=== PATIENT | male | born 1940 | race Hispanic/Latino ===

== ENCOUNTER 2021-06-06 22:19 | Observation (INO) | payer OTHER, SELFPAY ==
[2021-06-06 22:20] VITALS: BP 159/115; PULSE 116; RESP 16; TEMP 36.8; O2SAT 97; BMI 28.5
--- NOTE | 2021-06-06 23:20 | CT_ITS ---
STUDY: CT BRAIN WITHOUT CONTRAST REASON FOR EXAM: Male, 80 years old. dizziness RADIATION DOSAGE (If Supplied By Facility): CTDIvol = ( 44.99 ) mGy, DLP = ( 812.98 ) mGycm TECHNIQUE: Transaxial CT imaging of the brain was performed without administration of intravenous contrast material. Individualized dose optimization techniques were used for this CT. COMPARISON: No relevant priors. FINDINGS: Normal soft tissue structures. Normal calvarium. There is a 5 x 3.5 x 3.5 mm hyperdense structure in the anterior superior corner of the third ventricle, probably representing a choroid cyst. There is no associated ventricular obstruction and this finding is of normal medial clinical significance. There is mild cerebral atrophy with widening of the extra-axial spaces and ventricular dilatation. 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 There is no associated mass effect or ventricular obstruction and this finding is of doubtful clinical significance. Normal white matter tracts of the cerebral hemispheres. Normal basal ganglia and thalami. Normal brainstem. Normal cerebellum. There is atherosclerotic calcification of the cavernous carotid arteries. There is no intracranial hemorrhage. There are no findings of an acute ischemic infarction. There is mild mucoperiosteal thickening in the right and sinus consistent with chronic disease. No evidence for acute sinusitis. CT/Brain/Head without Contrast IMPRESSION: Chronic involutional changes of the brain. 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 Suggest 6 month follow-up exam to assess stability. No demonstrated acute intracranial process. Electronically Signed: Steven Rizo MD at 0:14 EDT , Service support ,
--- NOTE | 2021-06-06 23:21 | EKG12_ITS ---
Test Reason : DIZZY Blood Pressure : / mmHG Vent. Rate : 096 BPM Atrial Rate : 101 BPM P-R Int : 000 ms QRS Dur : 106 ms QT Int : 360 ms P-R-T Axes : 000 -04 029 degrees QTc Int : 454 ms Atrial fibrillation Incomplete right bundle branch block Abnormal ECG Confirmed by GUSTAVO LOPEZ, BUZZ ([id number]), photo editor DEENA ELMORE ([id number]) on 06/08/2021 10:09:16 AM Referred By: TRISTA Confirmed By:BUZZ CHEN MD
--- NOTE | 2021-06-06 23:22 | EDS_ITS ---
HPI History of Present Illness Chief Complaint: Dizziness Informant: patient and family Narrative Narrative: Of note, patient does speak Telugu but his Italian is actually pretty good. He is pretty good at telling me details. His family also helps. They are comfortable with this interpretation and he independently gives a good history. Patient had an episode of the dizziness/vertigo today. It is better but still occurs if he gets motion or moving. He does get a true spinning sensation. He has had this in the past. He most recently had about 1 month ago. He was evidently evaluated in [facility] for this but I do not know the details of what was done. They thought it was due to nerves. He does have a long history of being on fluoxetine. He did not have enough for his stay here. So he has cut his dose in half over the last 2 or so weeks. They think this might be related. Patient did not have any focal weakness. He did not fall. He does have a true sense of spinning. When he had the episode last a month ago he had nausea with it but he did not get nauseated this time. Although better he is not completely back to baseline with motion. [facility] Medical History (Updated 06/07/21 @ 02:[address] Slim Mccormick MD) Hypertension Home Medications valsartan-hydrochlorothiazide [Diovan HCT] 1 tab PO DAILY 06/06/21 [History Last Taken Unknown] Allergy/AdvReac Type Severity Reaction Status Date / Time aspirin AdvReac Bleeding Verified 06/06/21 22:23 Surgical History (Updated 06/07/21 @ 01:55 by Peggy Smith NP-C) H/O prostate biopsy Social History (Updated 06/07/21 @ 01:55 by Peggy Smith [employer]-C) Smoking Status: Never smoker alcohol intake: current alcohol intake frequency: holidays/special occasions only Alcohol type: beer substance use type: does not use ROS ROS ED Constitutional Constitutional ED: Denies chills, fever(s) or sweats Eyes Eyes: Denies blurry vision, change in vision or diplopia ENT ENT ED: Denies rhinorrhea Cardiovascular Cardiovascular: Denies chest pain, palpitations or racing heartbeat Respiratory/Chest Respiratory/Chest: Denies cough or dyspnea Gastrointestinal Gastrointestinal: Denies nausea or vomiting Genitourinary Genitourinary ED: Denies dysuria Musculoskeletal Musculoskeletal: Denies back pain or neck pain Integumentary Denies rash Neurologic Neurologic: Reports other Details: See history of present illness. ; Denies headache(s), paresthesias or weakness Psychiatric Psychiatric: Reports anxiety Endocrine Endocrinology: Denies polydipsia or polyuria Allergic/Immunologic Allergic/Immunologic ED: Denies urticaria EXAM Physical Exam Const Vital Signs: 06/06/21 22:20 06/06/21 22:46 06/07/21 00:01 Temperature 98.2 F Temperature Source Temporal Pulse Rate 116 H 85 Respiratory Rate 16 19 H Respiratory Effort Normal Non-Labored Respiratory Pattern Normal Blood Pressure 159/115 H 142/100 H Blood Pressure Mean 129 114 Pulse Ox 97 97 Oxygen Delivery Method Room Air Room Air 06/07/21 01:16 Temperature 98.1 F Temperature Source Temporal Pulse Rate 89 Respiratory Rate 15 Respiratory Effort Respiratory Pattern Blood Pressure 146/108 H Blood Pressure Mean 120 Pulse Ox 97 Oxygen Delivery Method Room Air Positive well nourished and well developed General Appearance ED: well developed and NAD HEENT Reports moist mucous membranes Eyes PERRL and EOMs intact bilaterally Eyes Narrative: Range of motion is intact. Visual faye are intact. When I sit him up, he does get a bit of vertigo and does get some mild horizontal nystagmus that lasts for about 4 or 5 seconds. Neck no lymphadenopathy and supple Neck Narrative: No carotid bruit. Chest Wall inspection of chest normal Resp normal respiratory effort and clear to auscultation bilaterally Cardio regular rate and regular rhythm GI normal to inspection, nondistended, normoactive bowel sounds and non-tender Palpation: soft Back/Spine no CVA tenderness Extremity General Extremety ED: Negative for edema or tenderness General Extremity: Negative for edema Neuro oriented x3 Neuro Narrative: NIH is 0. Sensorium / Orientation: alert Psych mental status grossly normal Skin no rashes or lesions noted MDM MDM MDM Narrative Medical decision making narrative: CT showed chronic but no acute changes. CBC is unremarkable. Electrolytes show minimal elevation in creatinine. Patient was given a small amount of fluids. The concern is that this patient does appear to be in new onset atrial fibrillation. His initial EKG was suspicious for this. I have looked at them on the monitor and he does appear to be in atrial fibrillation. His rate is controlled though. I am awaiting a repeat EKG. However, with his intermittent episodes of dizziness and new onset atrial fibrillation this puts him at much higher risk for potential stroke as the origin of his symptoms. Case was discussed with the hospitalist and the patient will be admitted. Lab Data Attestation: I reviewed the patient's lab results. Labs: Laboratory Results - last 24 hr 06/06/21 06/06/21 06/06/21 22:40 22:40 22:40 WBC 8.7 RBC 4.95 Hgb 16.0 Hct 47.0 MCV 94.9 H MCH 32.3 H MCHC 34.0 RDW Std Deviation 45.0 H RDW Coeff of Elsy 13.0 Plt Count 129 L MPV 12.7 H Immature Gran % (Auto) 0.800 Neut % (Auto) 60.0 Lymph % (Auto) 28.3 [place] % (Auto) 6.7 Eos % (Auto) 3.7 Baso % (Auto) 0.5 Absolute Neuts (auto) 5.2 Absolute Lymphs (auto) 2.45 Nucleated RBC % 0 Sodium 137 Potassium 3.7 Chloride 107 Carbon Dioxide 24.0 Anion Gap 6 BUN 24 H Creatinine 1.39 H Estim Creat Clear Calc 47.30 Est GFR (MDRD) Af Amer 63 Est GFR (MDRD) Non-Af 52 L BUN/Creatinine Ratio 17.3 Glucose 149 H Calcium 8.8 Magnesium 2.1 Radiography Diagnostic Testing: Radiology Impression Brain CT 06/06/21 23:20 IMPRESSION: Chronic involutional changes of the brain. 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 Suggest 6 month follow-up exam to assess stability. No demonstrated acute intracranial process. Electronically Signed: Steven Rizo MD at 0:14 EDT , Service support , EKG Initial EKG: Comments: EKG done as part of work-up for dizziness and mild irregular heartbeat. EKG shows atrial fibrillation but rate controlled. No ventricular ectopy. QRS and QTc are normal. No old for comparison. Discharge Plan Dx/Rx/DC Orders Clinical Impression: Dizziness, New onset atrial fibrillation Disposition Disposition: Acute Care Hospital [facility] Discharge Date/Time: 06/07/21 02:07
[2021-06-06] MEDS: Meclizine HCl 25 MG Tablet PO (23:28)
[2021-06-06 23:30] LABS: Absolute Lymphocyte Count 2.45 X10^3/uL (0.83-4.51); Absolute Neutrophil Count 5.2 X10^3/uL (2.0-7.7); Basophil# 0.04 X10^3/uL; Basophil% 0.5 % (0-1); Eosinophil# 0.32 X10^3/uL; Eosinophils% 3.7 % (0-5); Lymphocyte # 2.45 X10^3/ul (0.83-4.51); Lymphocyte % 28.3 % (19-41); Mean Corpuscular Hgb 32.3 pg (27.0-32.0); Mean Corpuscular Volume 94.9 fL (80-94); Mean Platelet Vol. 12.7 fl (6.2-12.0); Monocyte# 0.58 X10^3/uL; Monocyte% 6.7 % (0-10); NRBC Flagged by Analyzer 0 % (0-5); Neutrophil # 5.19 X10^3/uL (2.7-7.7); Platelet Count 129 K/mm3 (150-450); Red Blood Count 4.95 M/mm3 (4.6-6.2); White Blood Count 8.7 K/mm3 (4.4-11.0)
[2021-06-06 23:39] LABS: Anion Gap 6 (5-15); BUN 24 mg/dL (7-18); BUN/Creat Ratio 17.3 RATIO (10-20); Calcium,Total 8.8 mg/dL (8.5-10.1); Chloride 107 mmol/L (98-107); Creatinine, Serum 1.39 mg/dL (0.70-1.30); EST Glomerular Filtration Rate 52 mL/min (>60); Est Glom Filt Rate - Afr Amer 63 mL/min (>60); Glucose 149 mg/dL (74-106); Potassium 3.7 mmol/L (3.5-5.1); Sodium Level 137 mmol/L (136-145)
[2021-06-07] VITALS (12 sets, daily range): BP systolic 122–165; BP diastolic 75–116; PULSE 71–98; RESP 15–19; TEMP 36.3–36.7; O2SAT 96–98
--- NOTE | 2021-06-07 01:50 | PCM.HP.STD ---
Documented by User: RISHABH Choe 06/07/21 02:04 HPI - General General Date of Admission: 06/07/21 Date of Service: 06/07/21 Chief Complaint: Near syncope HPI Narrative MIGUEL ANGEL CARMONA, is a 80 M who presents with complaints of vertigo. Patient states that he has experienced this before approximately 1 month prior. Patient is American-speaking but does speak Andorran. Family at bedside is also able to help translate and they are comfortable with this. Patient states that when he was evaluated in [place] he was told that this was due to his nerves. Patient denies fever, chills, shortness of breath, chest pain, cough, nausea, vomiting. [facility] Medical History (Updated 06/07/21 @ 01:58 by RISHABH Choe) Hypertension Home Medications valsartan-hydrochlorothiazide [Diovan HCT] 1 tab PO DAILY 06/06/21 [History Last Taken Unknown] Allergy/AdvReac Type Severity Reaction Status Date / Time aspirin AdvReac Bleeding Verified 06/06/21 22:23 Surgical History (Updated 06/07/21 @ 01:55 by RISHABH Choe) H/O prostate biopsy Social History (Updated 06/07/21 @ 01:55 by RISHABH Choe) Smoking Status: Never smoker alcohol intake: current alcohol intake frequency: holidays/special occasions only Alcohol type: beer substance use type: does not use ROS Constitutional Constitutional: Denies anorexia, chills, fatigue, fever(s), malaise or weakness Cardiovascular Cardiovascular: Reports palpitations; Denies chest pain, edema or syncope Respiratory/Chest Respiratory/Chest: Denies cough, shortness of breath at rest or shortness of breath with exertion Gastrointestinal Gastrointestinal: Denies abdominal pain, constipation, diarrhea, nausea or vomiting Genitourinary Genitourinary: Denies dysuria Musculoskeletal Musculoskeletal: Denies back pain, extremity pain, joint pain, joint stiffness or joint swelling Integumentary Integumentary: Denies dry skin Neurologic Neurologic: Denies abnormal gait, abnormal speech, confusion, dizziness or focal weakness Psychiatric Psychiatric: Denies anxiety or depression Endocrine Endocrinology: Denies change in body appearance Hematologic/Lymphatic Hematologic/Lymphatic: Denies easy bleeding or easy bruising Vital Signs Vital Signs Vital Signs: 06/06/21 22:20 06/06/21 22:46 06/07/21 00:01 Temperature 98.2 F Temperature Source Temporal Pulse Rate 116 H 85 Respiratory Rate 16 19 H Respiratory Effort Normal Non-Labored Respiratory Pattern Normal Blood Pressure 159/115 H 142/100 H Blood Pressure Mean 129 114 Pulse Ox 97 97 Oxygen Delivery Method Room Air Room Air 06/07/21 01:16 Temperature 98.1 F Temperature Source Temporal Pulse Rate 89 Respiratory Rate 15 Respiratory Effort Respiratory Pattern Blood Pressure 146/108 H Blood Pressure Mean 120 Pulse Ox 97 Oxygen Delivery Method Room Air Weight Weight: 210 lb Body Mass Index (BMI) 28.5 Physical Exam Const alert, oriented x3 and no apparent distress General Appearance: cooperative HEENT normocephalic and head/scalp atraumatic Eyes conjunctivae normal and no scleral icterus Neck supple and no JVD General: trachea midline Resp normal respiratory effort, normal air movement and clear to auscultation bilaterally Cardio regular rate, S1 normal heart sound, S2 normal heart sound and peripheral pulses 2+ throughout Rhythm: abnormal rhythm irregularly irregular GI normal to inspection, nondistended, normoactive bowel sounds, soft to palpation and non-tender Extremity normal capillary refill and no clubbing, cyanosis or edema General Extremity: no tenderness to palpation of joints or extremities Skin General Skin Exam: no breakdown and turgor normal Lesions: no lesions Rashes: no rashes Neuro no focal motor deficits and no sensory deficits noted Speech: speech normal Motor Exam: Negative for general weakness Psych thought process normal, cooperative and affect normal Appearance: appropriate Results Lab / Micro Data Result Diagrams: 06/06/21 22:40 06/06/21 22:40 Labs: Laboratory Results - last 24 hr 06/06/21 22:40: WBC 8.7, RBC 4.95, Hgb 16.0, Hct 47.0, MCV 94.9 H, MCH 32.3 H, MCHC 34.0, RDW Std Deviation 45.0 H, RDW Coeff of Elsy 13.0, Plt Count 129 L, MPV 12.7 H, Immature Gran % (Auto) 0.800, Neut % (Auto) 60.0, Lymph % (Auto) 28.3, Parker % (Auto) 6.7, Eos % (Auto) 3.7, Baso % (Auto) 0.5, Absolute Neuts (auto) 5.2, Absolute Lymphs (auto) 2.45, Nucleated RBC % 0 06/06/21 22:40: Sodium 137, Potassium 3.7, Chloride 107, Carbon Dioxide 24.0, Anion Gap 6, BUN 24 H, Creatinine 1.39 H, Estim Creat Clear Calc 47.30, Est GFR (MDRD) Af Amer 63, Est GFR (MDRD) Non-Af 52 L, BUN/Creatinine Ratio 17.3, Glucose 149 H, Calcium 8.8 Assessment & Plan Assessment/Plan (1) Near syncope: (2) New onset atrial fibrillation: PLAN: 1. New onset atrial fibrillation with near syncope -Admit to PCU for cardiac monitoring -Patient is rate controlled at this time. -Will start therapeutic Lovenox -Trend cardiac enzymes -Consult case management for DOAC evaluation for discharge -Encourage incentive spirometry -Oxygen per protocol -PT and OT to eval and treat -Echo ordered for a.m. -CBC, BMP, TSH ordered for a.m. Mag level stat. 2. Hypertension -Continue valsartan and hydrochlorothiazide. DVT prophylaxis-SCDs. This patient was seen by RISHABH Choe under the supervision of Dr. Alcocre. Documented by User: Dr. Eileen Alcocer MD 06/07/21 02:22 HPI - General General Date of Admission: 06/07/21 [facility] Medical History (Updated 06/07/21 @ 01:58 by RISHABH Choe) Hypertension Home Medications valsartan-hydrochlorothiazide [Diovan HCT] 1 tab PO DAILY 06/06/21 [History Last Taken Unknown] Allergy/AdvReac Type Severity Reaction Status Date / Time aspirin AdvReac Bleeding Verified 06/06/21 22:23 Surgical History (Updated 06/07/21 @ 01:55 by RISHABH Choe) H/O prostate biopsy Social History (Updated 06/07/21 @ 01:55 by RISHABH Choe) Smoking Status: Never smoker alcohol intake: current alcohol intake frequency: holidays/special occasions only Alcohol type: beer substance use type: does not use Results Lab / Micro Data Result Diagrams: 06/06/21 22:40 06/06/21 22:40
[2021-06-07 02:06] LABS: Magnesium 2.1 mg/dL (1.6-2.6)
--- NOTE | 2021-06-07 02:13 | PCS.PANDOC ---
PANDEMIC DOCUMENTATION INITIATED: Date: 06/07/2021 Time: 211
[2021-06-07] MEDS: 0.9% Normal Saline 1,000 ML 75 ML IV (02:40)
[2021-06-07 03:07] LABS: Troponin-I HS 5 pg/mL (3.0-78.0)
[2021-06-07 05:27] LABS: Absolute Lymphocyte Count 2.42 X10^3/uL (0.83-4.51); Absolute Neutrophil Count 5.1 X10^3/uL (2.0-7.7); Basophil# 0.07 X10^3/uL; Basophil% 0.8 % (0-1); Eosinophil# 0.23 X10^3/uL; Eosinophils% 2.6 % (0-5); Hematocrit 46.1 % (40-54); Hemoglobin 15.5 g/dL (13.0-16.5); Lymphocyte # 2.42 X10^3/ul (0.83-4.51); Lymphocyte % 27.8 % (19-41); Mean Corp Hgb Conc 33.6 g/dL (32-36); Mean Corpuscular Hgb 32.2 pg (27.0-32.0); Mean Corpuscular Volume 95.6 fL (80-94); Mean Platelet Vol. 12.2 fl (6.2-12.0); Monocyte# 0.75 X10^3/uL; Monocyte% 8.6 % (0-10); NRBC Flagged by Analyzer 0 % (0-5); Neutrophil # 5.14 X10^3/uL (2.7-7.7); Neutrophil % 59.2 % (47-70); Platelet Count 119 K/mm3 (150-450); RBC Distribution Width SD 45.8 fl (35.1-43.9); Red Blood Count 4.82 M/mm3 (4.6-6.2); White Blood Count 8.7 K/mm3 (4.4-11.0)
--- NOTE | 2021-06-07 05:55 | ECHOD_ITS ---
Reason For Study: AFIB/FLUTTER Procedure This was a 2D Doppler, Color Flow transthoracic echocardiogram. Exam performed portable in patient room. Left Ventricle Normal LV size. Left ventricular systolic function is normal. The estimated ejection fraction is 65 %. No regional wall motion abnormalities noted. Right Ventricle Normal RV size. Normal systolic function. Atria The left atrium is mildly enlarged. Normal right atrium. Mitral Valve Normal mitral valve. Tricuspid Valve Normal tricuspid valve. Aortic Valve Trisinus/trileaflet aortic valve. Pulmonic Valve Normal pulmonic valve. Great Vessels Normal aortic root. The pulmonary artery is normal size. Normal inferior vena cava. Pericardium/Pleural No pericardial effusion. MMode/2D Measurements & Calculations LVIDd: 5.1 cm IVSd: 1.0 cm Ao root diam: 3.1 cm LVIDs: 3.5 cm LVPWd: 1.0 cm RVDd: 3.0 cm FS: 30.7 % LAV(MOD-bp): 68.2 ml LA A4 area: 24.7 cm2 LA dimension(2D): 4.1 cm LAV(MOD-bp) Indexed: 31.4 ml/m2 LAV(MOD-sp2): 58.6 ml LAV(MOD-sp4): 82.2 ml RA A4 area: 15.0 cm2 Doppler Measurements & Calculations MV E max todd: 83.8 cm/sec Ao V2 max: 94.3 cm/sec LV V1 max: 65.3 cm/sec Ao max P.6 mmHg LV V1 max P.7 mmHg PA V2 max: 69.7 cm/sec TR max todd: 230.2 cm/sec TR max P.2 mmHg ECHO/Echo Complete Interpretation Summary Normal LV size. Left ventricular systolic function is normal. The estimated ejection fraction is 65 %. The left atrium is mildly enlarged. Ordering Physician: Peggy Smith Referring Physician: SID PCP Performed By: Zayda Alvarado, JEN, RVT
[2021-06-07 06:01] LABS: Anion Gap 6 (5-15); BUN 22 mg/dL (7-18); BUN/Creat Ratio 19.1 RATIO (10-20); Calcium,Total 8.7 mg/dL (8.5-10.1); Chloride 108 mmol/L (98-107); Creatinine, Serum 1.15 mg/dL (0.70-1.30); EST Glomerular Filtration Rate 65 mL/min (>60); Est Glom Filt Rate - Afr Amer 79 mL/min (>60); Estimated Creatinine Clearance 57.17 ml/min; Glucose 102 mg/dL (74-106); Potassium 3.8 mmol/L (3.5-5.1); Sodium Level 139 mmol/L (136-145); Thyroid Stim Hormone (TSH) 1.92 uIU/mL (0.358-3.74); Troponin-I HS 5 pg/mL (3.0-78.0)
[2021-06-07 07:58] LABS: Hemoglobin A1c 5.5 % (3.8-5.6)
[2021-06-07 08:33] LABS: Troponin-I HS 5 pg/mL (3.0-78.0)
--- NOTE | 2021-06-07 09:13 | CT_ITS ---
EXAM: CT ANGIOGRAPHY HEAD AND NECK WITH INTRAVENOUS CONTRAST CLINICAL INDICATION: vertigo TECHNIQUE: [place] of [place]/head and neck CT angiography protocol performed with intravenous contrast. This CT exam was performed using one or more of the following dose reduction techniques: automated exposure control, adjustment of the mA and/or kV according to patient size, and/or use of iterative reconstruction technique. This report was created using [employer] report generation technology. MIP reconstructed images were created and reviewed. Coronal and sagittal reformatted images were created and reviewed. CONTRAST: IV 100mL [id number] COMPARISON: CT head 06/06/2021 FINDINGS: HEAD: RIGHT ANTERIOR CEREBRAL ARTERY: Unremarkable. No significant stenosis at the visualized segments. Anterior communicating artery is present. No aneurysm. RIGHT MIDDLE CEREBRAL ARTERY: Unremarkable. No significant stenosis at the visualized segments. No aneurysm. RIGHT POSTERIOR CEREBRAL ARTERY: Unremarkable. No occlusion or significant stenosis. No aneurysm. LEFT ANTERIOR CEREBRAL ARTERY: Unremarkable. No significant stenosis at the visualized segments. No aneurysm. LEFT MIDDLE CEREBRAL ARTERY: Unremarkable. No significant stenosis at the visualized segments. No aneurysm. LEFT POSTERIOR CEREBRAL ARTERY: Unremarkable. No occlusion or significant stenosis. No aneurysm. BASILAR ARTERY: Unremarkable. No significant stenosis. No aneurysm. GREAT VESSELS OF AORTIC ARCH: Unremarkable. Normal anatomy, patent. OTHER VASCULATURE: No vascular malformation. NECK: RIGHT COMMON CAROTID ARTERY: Unremarkable. No significant stenosis. No dissection or occlusion. RIGHT INTERNAL CAROTID ARTERY: Unremarkable. No significant stenosis. No dissection or occlusion. RIGHT EXTERNAL CAROTID ARTERY: Unremarkable. No occlusion. RIGHT VERTEBRAL ARTERY: Unremarkable. No significant stenosis. No dissection or occlusion. LEFT COMMON CAROTID ARTERY: Unremarkable. No significant stenosis. No dissection or occlusion. LEFT INTERNAL CAROTID ARTERY: Unremarkable. No significant stenosis. No dissection or occlusion. LEFT EXTERNAL CAROTID ARTERY: Unremarkable. No occlusion. LEFT VERTEBRAL ARTERY: Unremarkable. No significant stenosis. No dissection or occlusion. LUNG APICES: Unremarkable as visualized. SOFT TISSUES: Unremarkable. There are degenerative changes of the cervical spine without critical canal stenosis. CAROTID STENOSIS REFERENCE USING NASCET CRITERIA: % ICA stenosis = (1 - narrowest ICA diameter/diameter of distal cervical ICA) x 100. Mild - <50% stenosis. Moderate - 50-69% stenosis. Severe - 70-94% stenosis. Near occlusion - 95-99% stenosis. Occluded - 100% stenosis. CT/CTA Head AND Neck W/ Contrast IMPRESSION: Negative CTA carotid and CTA brain. Electronically Signed: Gregorio Lo MD ([place]) at 10:28 EDT , Service support ,
[2021-06-07] MEDS: Losartan Potassium 25 MG Tablet PO (11:03)
[2021-06-07] MEDS: hydroCHLOROthiazide 12.5mg 12.5 MG PO (11:04)
[2021-06-07] MEDS: Enoxaparin 100 MG/ML Syringe SC (11:04)
[2021-06-07] MEDS: Metoprolol Tartrate 25 MG Tablet PO (12:24)
--- NOTE | 2021-06-07 13:30 | DS.PCM_ITS ---
Providers Date of Admission: 06/07/21 Primary Care Physician: No Primary Care Phys Reason For Visit: NEW ONSET ATRIAL FIBRILLATION Diagnosis Discharge Diagnosis (1) Near syncope: Status: Acute Code(s): R55 - Syncope and collapse (2) New onset atrial fibrillation: Status: Acute Code(s): I48.91 - Unspecified atrial fibrillation Medications at Discharge Home Medications valsartan-hydrochlorothiazide [Diovan HCT] 1 tab PO DAILY 06/06/21 apixaban [Eliquis] 5 mg PO BID #120 tab 06/07/21 fluoxetine 10 mg PO DAILY #30 cap 06/07/21 metoprolol tartrate 50 mg PO BID #120 tab 06/07/21 Hospital Course Procedures 2-D Echocardiogram (EF 65% with no regional wall motion abnormality, mildly enlarged left atrium) and - (CTA of the head and neck-negative for any stenosis or significant lesions) Summary of Care Provided Minutes Spent on Discharge: 37 Hospital Course: Mr. Conklin is a 80-year-old male visiting here from [facility] who presented to the emergency department at [facility] on 06/07/2021 with a complaint of lightheadedness/vertigo. The patient reported on admission that he had experienced an episode like this 1 month prior. He is Micronesian-speaking at baseline but family has been at the bedside to help interpret for him. He had been evaluated preliminarily in [facility] and was told it was related to his nerves. It is unclear exactly what evaluation had been completed. At the time of admission he had no other presenting symptoms and his vertigo/lightheadedness had resolved. 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 In the emergency department he was found to be in atrial fibrillation and initially was mildly tachycardic with rates of 106 but otherwise has been having heart rates in the 80s to 90s for the most part. With this concern for possible vertigo a CT a of his neck was performed to rule out any significant stenosis and this was negative for any blockages. An echocardiogram was performed and showed an EF of 65% and mild LA dilation but no valvular abnormalities and wall motion was within normal limits. His serum creatinine was mildly elevated at 1.38 on admission but improved to 1.15 on discharge. His hemoglobin A1c was 5.5. He remained in atrial fibrillation throughout his stay. His TSH was within normal limits his blood pressure was elevated and beta-duong of metoprolol 50 mg twice daily was initiated. He was also converted from Lovenox full dose to Eliquis given his normal echocardiogram. Given that all his symptoms are resolved I suspect his lightheadedness was related to intermittent atrial fibrillation with RVR. I recommend an event monitor to be performed upon his return to [facility]. He is going back to [place] on [place], [place]. I encouraged him strongly to follow-up with a chief compliance officer there for further recommendations and more extensive work-up. He had no chest pain, troponin elevation here and no wall motion abnormality on his echocardiogram therefore there is no need at this time to evaluate his coronary arteries. He was discharged with prescriptions for metoprolol 50 mg twice daily, Eliquis 5 mg twice daily and refilled his prescription for his fluoxetine. Discharge diagnoses: Vertigo/lightheadedness New onset atrial fibrillation Hypertension Depression/anxiety Physical Exam Narrative Patient has had no further vertiginous symptoms or lightheadedness. He states he feels well he is here from [facility] and plans to return on June 21 Const alert, oriented x3 and no apparent distress Constitutional Narrative: Older male lying in bed, appears comfortable, daughter at bedside and helps with interpreting language, patient appears comfortable General Appearance: cooperative, comfortable, well kempt and well developed Orientation / Consciousness: awake HEENT normocephalic, head/scalp atraumatic, hearing grossly normal bilaterally and moist oral mucous membranes Eyes PERRL, EOMs intact bilaterally and conjunctivae normal Neck no lymphadenopathy, supple and no JVD Neck Narrative: Trachea midline, no thyroid enlargement noted Resp normal respiratory effort, no retractions, no use of accessory muscles and clear to auscultation bilaterally Auscultation: Negative for crackles, rales, rhonchi or wheezes Cardio regular rate, S1 normal heart sound, S2 normal heart sound, no murmurs, no rub, no gallops, no clicks and no JVD Cardio Narrative: Irregularly irregular rhythm with a normal rate GI normal to inspection, nondistended, normoactive bowel sounds, soft to palpation, non-tender and non-distended Extremity normal to inspection and no clubbing, cyanosis or edema Skin no rashes or lesions noted, no wounds, skin turgor normal and no jaundice Neuro oriented x3, CN's II-XII intact bilaterally, moves all extremities and no focal motor deficits Sensorium / Orientation: awake and alert Speech: speech normal Motor Exam: strength 5/5 throughout Psych affect normal Weight / BMI Weight Weight: 98.4 kg Body Mass Index (BMI) 28.5 ABG / Lab / Microbiology Data Result Diagrams: 06/07/21 04:52 06/07/21 04:52 Laboratory: Laboratory Results - last 24 hr 06/06/21 22:40: WBC 8.7, RBC 4.95, Hgb 16.0, Hct 47.0, MCV 94.9 H, MCH 32.3 H, MCHC 34.0, RDW Std Deviation 45.0 H, RDW Coeff of Elsy 13.0, Plt Count 129 L, MPV 12.7 H, Immature Gran % (Auto) 0.800, Neut % (Auto) 60.0, Lymph % (Auto) 28.3, Mcminn % (Auto) 6.7, Eos % (Auto) 3.7, Baso % (Auto) 0.5, Absolute Neuts (auto) 5.2, Absolute Lymphs (auto) 2.45, Nucleated RBC % 0 06/06/21 22:40: Sodium 137, Potassium 3.7, Chloride 107, Carbon Dioxide 24.0, Anion Gap 6, BUN 24 H, Creatinine 1.39 H, Estim Creat Clear Calc 47.30, Est GFR (MDRD) Af Amer 63, Est GFR (MDRD) Non-Af 52 L, BUN/Creatinine Ratio 17.3, Glucose 149 H, Calcium 8.8 06/06/21 22:40: Magnesium 2.1 06/07/21 02:30: Troponin I High Sens 5 06/07/21 04:52: WBC 8.7, RBC 4.82, Hgb 15.5, Hct 46.1, MCV 95.6 H, MCH 32.2 H, MCHC 33.6, RDW Std Deviation 45.8 H, RDW Coeff of Elsy 13.0, Plt Count 119 L, MPV 12.2 H, Immature Gran % (Auto) 1.000 H, Neut % (Auto) 59.2, Lymph % (Auto) 27.8, Mcminn % (Auto) 8.6, Eos % (Auto) 2.6, Baso % (Auto) 0.8, Absolute Neuts (auto) 5.1, Absolute Lymphs (auto) 2.42, Nucleated RBC % 0 06/07/21 04:52: Sodium 139, Potassium 3.8, Chloride 108 H, Carbon Dioxide 25.0, Anion Gap 6, BUN 22 H, Creatinine 1.15, Estim Creat Clear Calc 57.17, Est GFR (MDRD) Af Amer 79, Est GFR (MDRD) Non-Af 65, BUN/Creatinine Ratio 19.1, Glucose 102, Calcium 8.7, Troponin I High Sens 5, TSH 1.92 06/07/21 04:52: Hemoglobin A1c 5.5 06/07/21 08:04: Troponin I High Sens 5 Microbiology: Microbiology 06/07/21 01:55 Mucosa - Nose SARS-CoV-2 Antigen (Rapid) - Final Radiography Diagnostic Testing: Radiology Impression Brain CT 06/06/21 23:20 IMPRESSION: Chronic involutional changes of the brain. 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 Suggest 6 month follow-up exam to assess stability. No demonstrated acute intracranial process. Electronically Signed: Steven Rizo MD at 0:14 EDT , Service support , Echocardiogram 06/07/21 05:55 Interpretation Summary Normal LV size. Left ventricular systolic function is normal. The estimated ejection fraction is 65 %. The left atrium is mildly enlarged. Ordering Physician: Peggy Smith Referring Physician: NO PCP Performed By: Zayda Alvarado, RDCS, RVT Head/Neck CTA 06/07/21 09:13 IMPRESSION: Negative CTA carotid and CTA brain. Electronically Signed: Gregorio Lo MD ([place]) at 10:28 EDT , Service support , D/C Instructions Discharge Diet: Low fat / Low cholesterol Discharge Activity: Return to Normal Activity Meaningful Use Info Meaningful Use Diagnoses (Choose all that apply): None applicable Discharge Plan Admission Admit Date/Time: 06/07/21 01:50 Primary Reason for Your Visit: Dizziness/atrial fibrillation Attending Provider: Brittany Boyle Primary Care Provider: Care Physician,No Primary Instructions Patient Instructions: ED AFIB Additional Instructions / Restrictions: Please follow up with a Porcelain Mixer in [facility] upon your return Discharge Orders/Prescriptions Prescriptions: New fluoxetine 10 mg Capsule 10 mg PO DAILY Qty: 30 RF: 0 Eliquis 5 mg Tablet 5 mg PO BID Qty: 120 RF: 0 metoprolol tartrate 50 mg Tablet 50 mg PO BID Qty: 120 RF: 0 Continued valsartan-hydrochlorothiazide [Diovan HCT] 80-12.5 mg Tablet 1 tab PO DAILY RF: 0 Discontinued fluoxetine 10 mg Capsule 10 mg PO DAILY RF: 0 Referrals / Follow Up: Care Physician,No Primary [Primary Care Provider] - Disposition Disposition (needs filled in before D/C Order can be placed): Home, Self Care Charges/Coding Visit Charges Inpatient E&M: 89622 Disch Hosp
--- NOTE | 2021-06-07 14:26 | CASEMGMT ---
1413- Called [facility] retail pharmacy and s/w states [place] applied 30 day free for Eliquis. States Fluoxetine $12.62, Metoprolol $14.87. Went to patient bedside, patient states can understand/communicate in Mosotho if speaking slowly. This music writer explained Eliquis 30 day free and aware of prices for other two medications ordered. Provided [facility] retail pharmacy number and aware can call and provide payment if wanting bedside delivery, otherwise can pick pulling machine operator after DC through retail pharmacy. Tawanna from pharmacy at bedside s/w patient after this music writer. Able to get extra medication for Fluoxetine and Metoprolol as patient concerned with getting back home in time. Aware Eliquis only to come in 30 day Free and if requiring more to call the Retail Pharmacy to inquire about additional amount. States understanding. Ness Encarnacion RNCM
--- NOTE | 2021-06-07 15:02 | PHA.DC.MC ---
Pharmacy Service has performed discharge medication reconciliation and counseling for this patient. Medication papers printed in both Grenadian and Sami. 1. APIXABAN 5MG PO BID 2. METOPROLOL TARTRATE 50MG PO BID The patient's discharge medication list was reviewed for discrepancies and discrepancies were resolved. Patient told this [facility] he needs a 45 day supply to make it back [place]. Patient's bottle of fluoxetine is here and the dose on the bottle is 20mg PO daily. This [facility] spoke to Dr. Boyle to notify her of the difference in dose and day supply needed. She sent a new Rx to the retail pharmacy for 20mg PO daily #60. Patient states he has enough Diovan to make it home. Home Medications valsartan-hydrochlorothiazide [Diovan HCT] 1 tab PO DAILY 06/06/21 apixaban [Eliquis] 5 mg PO BID #120 tab 06/07/21 fluoxetine 20 mg PO DAILY #60 cap 06/07/21 metoprolol tartrate 50 mg PO BID #120 tab 06/07/21 The patient was counseled on the following discharge medications and changes in medications for homegoing were reviewed. The Reason for Use, instructions for use, and potential side effects were reviewed for all new medications. The patient's questions regarding all of their medications were answered. The patient was able to verbally demonstrate an understanding of their discharge medications.
--- NOTE | 2021-06-09 11:19 | NURSING ---
daughter Martha Wan called to clarify discharge medications since patient is nicaraguan speaking. I reviewed information on discharge medications listed in chart.
== END 2021-06-07 13:42 | disposition home or self-care (01) ==
LOC: ED 23:51 → PCU 06-07 01:58
PROVIDERS: Nurse Practitioner Family; Admitting Provider Family Medicine; Emergency Provider Emergency Medicine; Visit Provider Internal Medicine
DX: I48.91 Unspecified atrial fibrillation (principal); R55 Syncope and collapse; I10 Essential (primary) hypertension; F41.9 Anxiety disorder, unspecified; F32.9 Major depressive disorder, single episode, unspecified; R73.9 Hyperglycemia, unspecified; Q04.6 Congenital cerebral cysts; Z79.899 Other long term (current) drug therapy
CPT/HCPCS: 36415; 70450; 70496; 70498; 80048; 83036; 83735; 84443; 84484; 85025; 87426; 93005; 93306; 96360; 96361; 96372; 99218; 99284; J7030; Q9967; A4216; G0378